=== PATIENT | female | born 1990 | race Caucasian/White ===

== ENCOUNTER 2016-05-28 16:49 | Emergency (ER) | payer SELFPAY ==
[2016-05-28 16:50] VITALS: BMI 26.6
[2016-05-28 16:55] VITALS: O2SAT 100
[2016-05-28 17:37] LABS: RBC URINE 1 /hpf (0-3); URINE BACTERIA FEW (<OCC); URINE BILIRUBIN NEGATIVE (NEGATIVE); URINE BLOOD NEGATIVE (NEGATIVE); URINE COLOR Straw (YELLOW); URINE GLUCOSE (UA) NORMAL (Normal); URINE KETONE TRACE mg/dL (NEGATIVE); URINE LEUKOCYTE ESTERASE NEG Leu/uL (Negative); URINE PROTEIN NEGATIVE (NEGATIVE); URINE UROBILINOGEN NORMAL mg/dL (0.2-1.0); WBC URINE 1 /hpf (0-5)
--- NOTE | 2016-05-28 18:04 | C.PDOC ---
History Of Present Illness 26-year-old female, presents to the emergency department with complaints of abdominal pain. Patient states she has been experiencing lower-back discomfort and suprapubic abdominal pain for the past few days. Patients last menstrual period was in 03/11. She denies any urinary symptoms and has no vaginal bleeding or discharge. Time Seen by Provider: 05/28/16 17:47 Chief Complaint (Nursing): Abdominal Pain History Per: Patient History/Exam Limitations: no limitations Onset/Duration Of Symptoms: Days Current Symptoms Are (Timing): Still Present Severity: Moderate Location Of Pain/Discomfort: Suprapubic Past Medical History Reviewed: Historical Data, Nursing Documentation, Vital Signs Vital Signs: Last Vital Signs Temp 97.5 F L 05/28/16 16:53 Pulse 85 05/28/16 16:53 Resp 18 05/28/16 16:53 BP 114/68 05/28/16 16:53 Pulse Ox 100 05/28/16 18:15 - [facility] Procedures LOW CERVICAL (09/17/13) Family History: States: Unknown Family Hx - Social History Hx Tobacco Use: No Hx Alcohol Use: No Hx Substance Use: No - Immunization History Hx Tetanus Toxoid Vaccination: No Hx Influenza Vaccination: No Hx Pneumococcal Vaccination: No Review Of Systems Except As Marked, All Systems Reviewed And Found Negative. Constitutional: Negative for: Fever, Chills Cardiovascular: Negative for: Chest Pain, Palpitations Respiratory: Negative for: Shortness of Breath Gastrointestinal: Positive for: Abdominal Pain Genitourinary: Negative for: Dysuria, Frequency Musculoskeletal: Negative for: Back Pain Skin: Negative for: Rash Neurological: Negative for: Weakness, Numbness, Headache, Dizziness Physical Exam - Physical Exam Appears: Non-toxic, No Acute Distress Skin: Normal Color, Warm, Dry Head: Atraumatic, Normacephalic Eye(s): bilateral: Normal Inspection Nose: Normal Oral Mucosa: Moist Lips: Normal Appearing Neck: Normal ROM Cardiovascular: Rhythm Regular Respiratory: Normal Breath Sounds Gastrointestinal/Abdominal: Normal Exam, Soft, No Tenderness, No Mass, Distention (slightly distended suprapubic), No Guarding Back: Normal Inspection Extremity: Normal ROM Neurological/Psych: Oriented x3, Normal Speech, Normal Cognition ED Course And Treatment - Laboratory Results Result Diagrams: 05/28/16 18:06 05/28/16 18:06 Lab Interpretation: Normal ([facility] [place] [address].00) O2 Sat by Pulse Oximetry: 100 Pulse Ox Interpretation: Normal - CT Scan/US Pelvic ultrasound Other Rad Studies (CT/US): Read By Radiologist, Radiology Report Reviewed CT/US Interpretation: Accession No. : [id number]. Patient Name / ID : CONSTANCE BARNARD / [id number]. Exam Date : 05/28/2016 18:22:45 ( Approved ). Study Comment : Sex / Age : F / 26Y. Creator : Gregoria Brown MD. Dictator : Gregoria Brown MD. Flue Tile Press Operator : Technical Services Specialist : Gregoria Brown MD. Approver2 : Report Date : 05/28/2016 18:52:35. My Comment : . Indication: with abdominal pain. Comparison: None. Technique: Transabdominal pelvic ultrasound. Findings: The uterus measures approximately 13.3 x 5.9 x 6.5 cm. Anteverted. Cervix length measures approximately 3.6 cm. There is a single intrauterine fetus present. 2 mm yolk sac. The gestational sac measures 2 cm and is compatible with a gestational age of 6 weeks 3 days. The crown-rump length measures 0.6 cm and is compatible with a gestational age of 6 weeks 3 days. There is heart motion which measured 130.8 BPM. The right ovary measures 3.2 x 2.2 x 3.3 cm. The left ovary measures 3.1 x 2.1 x 3.2 cm. Flow was demonstrated to both ovaries. Impression: Live single intrauterine with estimated gestational age 6 weeks 3 days. heart rate 130.8 bpm. Advise an anomaly screen at 16-18 weeks gestational age Reevaluation Time: 19:31 Reassessment Condition: Improved Disposition - Disposition Referrals: [facility] [Outside] [facility] [Outside] Disposition: HOME/ ROUTINE Disposition Time: 19:31 Condition: STABLE Instructions: (ED) Print Language: KHMER - Clinical Impression Clinical Impression: First trimester - Scribe Statement The provider has reviewed the documentation as recorded by the Beatriceibbenita Up All medical record entries made by the Beatriceibbenita were at my direction and personally dictated by me. I have reviewed the chart and agree that the record accurately reflects my personal performance of the history, physical exam, medical decision making, and the department course for this patient. I have also personally directed, reviewed, and agree with the discharge instructions and disposition.
[2016-05-28 18:14] LABS: BASO # 0.1 K/uL (0.0-0.2); BASO % 0.9 % (0.0-2.0); EOS % 0.5 % (0.0-4.0); HEMATOCRIT 39.3 % (34.0-47.0); LYMPH % 34.1 % (20.0-40.0); MEAN CORPUSCULAR HEMOGLOBIN 28.1 pg (27.0-31.0); MEAN CORPUSCULAR HGB CONC 33.8 g/dL (33.0-37.0); MEAN PLATELET VOLUME 8.6 fL (7.2-11.7); MONO # 0.5 K/uL (0.0-0.8); MONO % 7.7 % (0.0-10.0); RED CELL DISTRIBUTION WIDTH 15.8 % (11.5-14.5)
[2016-05-28 18:16] LABS: MEAN CELL VOLUME 83.1 fL (81.0-99.0)
[2016-05-28 18:24] LABS: CHLORIDE 98 mmol/L (98-107); SODIUM 138 mmol/L (132-148)
[2016-05-28 18:26] LABS: BILIRUBIN,TOTAL 0.3 mg/dL (0.2-1.3); CARBON DIOXIDE 25 mmol/L (22-30); GFR AFRICAN-AMERICAN > 60
[2016-05-28 18:27] LABS: ALB/GLOB RATIO 1.4 (1.0-2.1); ALKALINE PHOSPHATASE 49 U/L (38-126); ALT/SGPT 10 U/L (9-52); AST/SGOT 23 U/L (14-36); BLOOD UREA NITROGEN 9 mg/dL (7-17); CALCIUM 9.4 mg/dl (8.6-10.4); GLUCOSE,RANDOM 81 mg/dL (65-105); TOTAL PROTEIN 7.4 g/dL (6.3-8.3)
--- NOTE | 2016-05-28 18:55 | US ---
Indication: with abdominal pain Comparison: None. Technique: Transabdominal pelvic ultrasound. Findings: The uterus measures approximately 13.3 x 5.9 x 6.5 cm. Anteverted. Cervix length measures approximately 3.6 cm. There is a single intrauterine fetus present. 2 mm yolk sac. The gestational sac measures 2 cm and is compatible with a gestational age of 6 weeks 3 days. The crown-rump length measures 0.6 cm and is compatible with a gestational age of 6 weeks 3 days. There is heart motion which measured 130.8 BPM. The right ovary measures 3.2 x 2.2 x 3.3 cm. The left ovary measures 3.1 x 2.1 x 3.2 cm. Flow was demonstrated to both ovaries. Impression: Live single intrauterine with estimated gestational age 6 weeks 3 days. heart rate 130.8 bpm. Advise an anomaly screen at 16-18 weeks gestational age
[2016-05-28 19:39] VITALS: BP 101/60; PULSE 84; RESP 20; TEMP 98.4
== END 2016-05-28 19:39 | disposition home or self-care (01) ==
LOC: C.ER 16:49
DX: O26.891 Other specified pregnancy related conditions, first trimester (principal); R10.30 Lower abdominal pain, unspecified; Z3A.01 Less than 8 weeks gestation of pregnancy

== ENCOUNTER 2016-08-19 21:49 | Observation (INO) | payer OTHER ==
[2016-08-19] MEDS ORDERED: Lactated Ringer's 1,000 ML IV ONE (22:12)
[2016-08-19] MEDS ORDERED: Oxycodone/Acetaminophen 5/325 mg Tab PO PRN (22:19)
[2016-08-19] MEDS ORDERED: Oxycodone/Acetaminophen 5/325 mg Tab ONE (22:38)
[2016-08-19 22:41] LABS: BASO # 0.1 K/uL (0.0-0.2); BASO % 0.6 % (0.0-2.0); EOS % 0.4 % (0.0-4.0); HEMATOCRIT 38.9 % (34.0-47.0); LYMPH # 1.3 K/uL (1.0-4.3); LYMPH % 10.7 % (20.0-40.0); MEAN CORPUSCULAR HEMOGLOBIN 29.7 pg (27.0-31.0); MEAN CORPUSCULAR HGB CONC 33.9 g/dL (33.0-37.0); MEAN PLATELET VOLUME 8.5 fL (7.2-11.7); MONO # 0.8 K/uL (0.0-0.8); MONO % 6.7 % (0.0-10.0); RED CELL DISTRIBUTION WIDTH 14.4 % (11.5-14.5)
[2016-08-19 22:43] LABS: MEAN CELL VOLUME 87.5 fL (81.0-99.0); WHITE BLOOD COUNT 12.4 K/uL (4.8-10.8)
[2016-08-19 22:49] LABS: CHLORIDE 103 mmol/L (98-107)
[2016-08-19 22:50] LABS: POTASSIUM 3.4 mmol/L (3.6-5.2); SODIUM 137 mmol/L (132-148)
[2016-08-19 22:51] LABS: RBC URINE 1 /hpf (0-3); URINE BACTERIA RARE (<OCC); URINE BILIRUBIN NEGATIVE (NEGATIVE); URINE BLOOD NEGATIVE (NEGATIVE); URINE COLOR Straw (YELLOW); URINE GLUCOSE (UA) NORMAL (Normal); URINE KETONE TRACE mg/dL (NEGATIVE); URINE LEUKOCYTE ESTERASE NEG Leu/uL (Negative); URINE PROTEIN NEGATIVE (NEGATIVE); URINE UROBILINOGEN NORMAL mg/dL (0.2-1.0); WBC URINE 1 /hpf (0-5)
[2016-08-19 22:52] LABS: ALB/GLOB RATIO 1.1 (1.0-2.1); AST/SGOT 17 U/L (14-36); BILIRUBIN,TOTAL 0.6 mg/dL (0.2-1.3); BLOOD UREA NITROGEN 3 mg/dL (7-17); CARBON DIOXIDE 24 mmol/L (22-30); GFR AFRICAN-AMERICAN > 60; TOTAL PROTEIN 7.1 g/dL (6.3-8.3)
[2016-08-19 22:53] LABS: ALKALINE PHOSPHATASE 64 U/L (38-126); ALT/SGPT 19 U/L (9-52); CALCIUM 9.3 mg/dl (8.6-10.4); GLUCOSE,RANDOM 90 mg/dL (65-105)
[2016-08-19] MEDS ORDERED: Dextrose 5%/Lactated Ringer's 1,000 ML IV SCH (23:45)
--- NOTE | 2016-08-20 00:08 | OBHP ---
Datetime: 08/19/2016 22:20 IP Adm Impression: , intrauterine ; No Active Labor IP Chief Complaint Other: Lower back and abdominal pain; headache, nausea IP Admit Plan: Observation/Evaluation Admit Comment, IP Provider: WAKU WAKU ? Product Mgr ID [id number] 26 yo , LMP 03/25/16; revised BECKY 01/10/17 by ALONDRA pryor 19w 3d c/o headache onset 1500 hour s; first time during - associated with nausea; no vomiting. Patient has good appetite. Ephraim es blurred vision or spots. Took nothing for headache. Also, c/o low back pain, and lower abdominal p ain - also onset 1500 hours, pain scale 5/10 -"feels like when I had my kidney stones (last year)". D enies fever, chills. (+) quickening, first felt 08/17/16. Denies LOF, VB. care: [facility], last visit 08/16/16; next visit 08/30/16. P Ob: C/S x 2: 2009, female, 7lb 8oz, [facility]. 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 Denies STIs or abnormal Pap PMH: renal calculi, 2015; received only pain meds; unable to follow up with recommended MD due to insurance challenges PSH: C/S x 2 Allergies: penicilin = rash Meds: PNV Soc Hx: denies tobacco, illicit drug or EtOH use. x 5 years; - father of this ch ild is her . Lives with her two children. 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 - DM. Father alive 50+ y.o. - no med issues. No known fam h/o cancer P.E.: as above. WD in discomfort, NAD. Awake, alert, oriented to time, person and place. Cooperati ve Assessment: 26 y.o. P2, prev C/S x 2, h/o renal calculus with left CVA and suprapubic tenderness - R/O renal calculus. (+) headache - may be related to dehydration and decreased p.o. intake - last at e at 1300 hours. Afebrile, vital signs stable. FHR auscultated as above. FM also appreciated. Plan: 1) CBC, comp panel, T_S, U/A 20 renal and ob ultrasounds 3) IVFs 4) Zofran 4 mg IVP x 1 5) Tylenol 650 mg p.o. x 1 6) Percocet 1 tab p.o. x 1 7) observe Addendum: 2355 hours patient returns from ultrasound Headache is improved. (+) nausea (as before and may be exacerbated by percocet). No vomiting. Hung ry - Ultrasound reports pending - Labs noted for mildly elevated WBC 12.6; all else wnl/negative; U/A trace ketones Assessment: P2, prev C/S x 2, renal colic, right renal calculus (to be cofirmed by official report ). Will observe with IV hydration and p.o. pain medications. Also, comnsult. This explained to magno hastingschidi, who expressed an understanding and agrees. Clinically stable. Plan: 1) continue IVFs 2) Regular diet in AM 3) consult, in AM 4) Percocet PRN pain 5) Tylenol PRN, headache/fever 6) Observation Pelvic Type - PN: Adequate Extremities - PN: Normal Abdomen - PN: Abnormal Back - PN: Abnormal Lungs - PN: Normal Heart - PN: Normal Thyroid - PN: Not Done Neurologic - PN: Normal HEENT - PN: Normal General - PN: Normal FHR - Baseline A Provider: 155 Contraction Comments Provider: none Comments, ACOG Physical Exam: Skin: warm, dry, intact Back: bilateral CVA tenderness, left >> right Abdomen: gravid. Soft. Non distended. Healed Pfannenstiel scar. (+) suprapubic tenderness and left flank/LLQ tenderness All other systems reviewed - as per HPI Gestation - Est Wks by US: 19w 3d EGA AdmitDate IP: 19.3 Vital Signs Provider: Reviewed IP Indication for Induction: Not Applicable IP Chief Complaint: Maternal discomfort Dilatation, Provider: 0 Effacement, Provider: 0 Station, Provider: N/A Genitourinary Exam: Normal DTRs - PN: Not Done
--- NOTE | 2016-08-20 07:35 | OBPN ---
Datetime: 08/20/2016 07:22 IP Progress Note Comment: Patient awake, slept well enough. Denies any back pain P.E.: limited Back: no CVA tenderness Spoke with Dr. Bustillo consult: discussed with him renal ultrasound finding of 5mm non obstruc ting calculus in the interpolar region of the right kidney; as well as U/A negative for infection. At this time, nothing to do; except monitoring and treatment for pain. Recommends she can follow up as outpatient or return to E.D. as needed. This was d/w patient who expresed an understanding and agrees. Patient also advised to investigate with her insurance; possible evaluation prior to any subsequent exacerbation. Assessment: 26 yo P2, non obstructing renal calculus, pain resolved with medication and hydration. Clinically stable. Plan: 1) discharge home 2) Rx: percocet 1 tab every 4-6 hours, as needed #12 tabs 3) Keep all scheduled appointment(s) Datetime: 08/19/2016 22:20 Contraction Comments Provider: none FHR - Baseline A Provider: 155 Gestation - Est Wks by US: 19w 3d Vital Signs Provider: Reviewed Dilatation, Provider: 0 Effacement, Provider: 0 Station, Provider: N/A
--- NOTE | 2016-08-20 07:37 | OBDCSUM ---
Datetime: 08/20/2016 07:34 Discharge Time: 08/20/2016 07:35 Discharge Diagnosis Prov Other: 19 weeks right renal calculus renal colic
--- NOTE | 2016-08-20 08:41 | US ---
PROCEDURE: Ultrasound of the Kidneys HISTORY: Back pain, h/o renal calculi, 2016 COMPARISON: CT abdomen and pelvis from 12/12/2015. TECHNIQUE: Grayscale imaging was performed. FINDINGS: RIGHT KIDNEY: Measures: 10.0 cm. Normal in size, contour and echogenicity. There is a 5 mm nonobstructing stone in the interpolar region and mild fullness in the collecting system. No solid mass lesion or hydronephrosis visualized. LEFT KIDNEY: Measures: 10.7 cm. Normal in size, contour and echogenicity. No stone, solid mass lesion or hydronephrosis visualized. OTHER FINDINGS: None. IMPRESSION: 5 mm nonobstructing stone in the right interpolar region and mild fullness in the collecting system. No left nephrolithiasis or hydronephrosis.
--- NOTE | 2016-08-20 08:46 | US ---
PROCEDURE: OB Pelvic Ultrasound HISTORY: 19wk. lower abd pain; prev C/S x 2 COMPARISON: None available. FINDINGS: UTERUS: Gestational sac: Single live intrauterine fetus in cephalic presentation. Heart rate: 142 bpm. BPD: 4.5 cm corresponding to 19 weeks and 4 days of gestational age. HC: 16.6 cm corresponding to 19 weeks and 2 days of gestational age. AC: 14.1 cm corresponding to 19 weeks and 4 days of gestational age. FL: 3.1 cm corresponding to 19 weeks and 6 days of gestational age. age (Ultrasound estimated): 19 weeks and 4 days Kati-gestational hemorrhage: None. Date of delivery (Ultrasound estimated) : 01/09/2017 Placenta is anterior. Amniotic fluid is adequate. CERVIX: Long and closed. No cervical abnormality seen. FREE FLUID: None. OTHER FINDINGS: None. IMPRESSION: Single live intrauterine fetus in cephalic presentation with mean gestational age of 19 weeks and 4 days. Placenta is anterior and amniotic fluid is adequate. Cervix is closed. The estimated date of delivery is 01/09/2017. Please note this is a limited obstetric ultrasound performed on an emergent basis. Clinical follow-up and follow-up anatomic survey is advised. A preliminary report was provided by [employer].
== END 2016-08-20 08:14 | disposition home or self-care (01) ==
LOC: C.EROB 21:49 → C.4D 23:50
PROVIDERS: ADMIT Obstetrics & Gynecology; ATTEND Obstetrics & Gynecology
DX: N20.0 Calculus of kidney (principal); Z3A.19 19 weeks gestation of pregnancy; O26.832 Pregnancy related renal disease, second trimester
CPT/HCPCS: 76770; 76815; 80053; 81001; 85025; 86850; 86900; G0378; J2405; J7120